=== PATIENT | male | born 2000 | race African-American/Black ===

== ENCOUNTER 2020-08-08 19:10 | Emergency (ER) | payer SELFPAY ==
[~2020-08-08] VITALS: Ht 175.3 cm; Wt 56.0 kg
[2020-08-08] MEDS ORDERED: SODIUM CHLORIDE 0.9% 1,000 ML IV ONE (20:45)
[2020-08-08 20:53] LABS: BASOPHILS % 1.3 % (0.0-2.0); EOSINOPHILS % 1.1 % (0.0-5.0); HEMATOCRIT. 47.9 % (42.0-52.0); HEMOGLOBIN. 16.4 g/dL (14.0-18.0); LYMPHOCYTES % 56.8 % (20.0-50.0); MEAN CORPUSCULAR HEMOGLOBIN 29.3 pg (28.0-32.0); MEAN CORPUSCULAR VOLUME 85.5 fL (80.0-94.0); MEAN PLATELET VOLUME 10.2 fl (7.4-10.4); MONOCYTES % 6.2 % (2.0-8.0); NEUTROPHILS % 34.6 % (40.0-76.0); PLATELET 193 x1000/uL (130-400); RED CELL DISTRIBUTION WIDTH 13.5 % (11.6-14.6)
[2020-08-08 20:59] LABS: CHLORIDE 106 mEq/L (98-107)
[2020-08-08] MEDS ORDERED: LORAZEPAM 2MG/ML CPJ IV ONE (21:00)
[2020-08-08 21:04] LABS: ETHANOL BLOOD < 10 mg/dL
[2020-08-08] MEDS ORDERED: POTASSIUM CHLORIDE 20MEQ TABLET SR PO ONE (23:15)
[2020-08-09 03:25] LABS: *AMPHETAMINES SCREEN URINE NEGATIVE (NEGATIVE)
[2020-08-09 03:26] LABS: *BARBITURATES SCREEN URINE NEGATIVE (NEGATIVE); *BENZODIAZEPINES SCREEN URINE NEGATIVE (NEGATIVE); *COCAINE SCREEN URINE NEGATIVE (NEGATIVE); METHADONE URINE SCREEN NEGATIVE (NEGATIVE); OPIATES URINE SCREEN NEGATIVE (NEGATIVE)
[2020-08-09 03:27] LABS: CANNABINOID URINE SCREEN PRESUMTIVE POSITIVE (NEGATIVE); PHENCYCLIDINE URINE SCREEN NEGATIVE (NEGATIVE)
[2020-08-09 07:01] VITALS: BP 118/69
== END 2020-08-09 07:00 | disposition home or self-care (01) ==
LOC: ER 19:10
DX: T40.7X1A Poisoning by cannabis (derivatives), accidental (unintentional), initial encounter (principal); F12.980 Cannabis use, unspecified with anxiety disorder; R00.0 Tachycardia, unspecified; F91.8 Other conduct disorders; E87.6 Hypokalemia; Y92.89 Other specified places as the place of occurrence of the external cause
CPT/HCPCS: 36415; 71045; 80053; 80305; 80320; 85025; 93005; 96374; 99285; J2060; J7030; G0480